=== PATIENT | male | born 1940 | race African-American/Black ===

== ENCOUNTER 2021-11-27 18:18 | Emergency (ER) | payer OTHER ==
[~2021-11-27] VITALS: Ht 172.7 cm; Wt 74.8 kg
[2021-11-27 21:38] LABS: Eosinophils # (auto) 0.1 10 ^3/uL (0-0.8); Monocytes # (auto) 0.9 10 ^3/uL (0-1.3); White Blood Cell 13.4 10^3/uL (4.4-10.8)
[2021-11-27 21:40] LABS: Basophils # (auto) 0.1 10 ^3/uL (0-0.2); Basophils % (auto) 0.5 % (0.0-2.0); Eosinophils % (auto) 0.7 % (0.0-7.0); Hematocrit 26.7 % (41.0-53.0); Hemoglobin 9.1 g/dL (13.5-17.5); Lymphocytes # (auto) 1.3 10 ^3/uL (0.4-5.4); Mean Corpuscular Hemoglobin 34.4 pg (28.0-32.0); Mean Corpuscular Hgb Conc. 34.1 g/dL (32.0-36.0); Monocytes % (auto) 6.5 % (0.0-12.0); Neutrophils # (auto) 11.1 10 ^3/uL (1.6-8.6); Neutrophils % (auto) 82.3 % (37.0-80.0); Nucleated Red Blood Cells % 0.2 %; Red Blood Cells 2.64 10^6/uL (4.5-5.90)
[2021-11-27 21:56] LABS: Albumin 1.7 g/dL (3.4-5.0); Calcium 8.4 mg/dL (8.5-10.1); Magnesium 2.4 mg/dL (1.6-2.6); Potassium 4.5 mmol/L (3.5-5.1)
[2021-11-27 21:59] LABS: BUN/Creatinine Ratio 29.8; Bilirubin, Total 0.5 mg/dL (0.2-1.0); Total Protein 6.7 g/dL (6.4-8.2)
[2021-11-27 22:03] LABS: Lactic Acid w/Reflex 2.1 mmol/L (0.4-2.0)
[2021-11-27] MEDS ORDERED: LACTATED RINGER'S 1,000 ML IV ONE (22:15)
[2021-11-27 23:10] LABS: Urine Bacteria FEW /hpf (None Seen); Urine Blood TRACE /uL (Negative); Urine Specific Gravity 1.018 (1.001-1.035); Urine WBC 19 /hpf (0 - 3)
[2021-11-28 08:30] VITALS: BP 112/58
== END 2021-11-28 12:45 | disposition home or self-care (01) ==
LOC: EDBD 18:18 → ER 18:18
DX: L89.103 Pressure ulcer of unspecified part of back, stage 3 (principal); L89.529 Pressure ulcer of left ankle, unspecified stage; L89.519 Pressure ulcer of right ankle, unspecified stage; E86.0 Dehydration; I10 Essential (primary) hypertension
CPT/HCPCS: 36415; 80053; 81001; 83605; 83735; 84484; 85025; 87040; 93005; 96360; 99284; J7030